=== PATIENT | male | born 1975 ===

== ENCOUNTER → 2018-04-24 22:13 | Outpatient (REF) | payer OTHER, SELFPAY ==
[2018-04-24 22:16] LABS: Bacteria Urine None Seen; RBC Urine None Seen (0-5/HPF); WBC Urine None Seen (0-5/HPF)
[2018-04-24 23:01] LABS: Add Manual Diff / Slide Review NO; Basophils Absolute Auto 0 /uL (0-100); Basophils Percent Auto 0.6 % (0-2); Eosinophils Absolute Auto 0 /uL (0-450); Eosinophils Percent Auto 0.9 % (2-4); Hemoglobin 15.1 g/dL (13.5-17.5); Lymphocytes Absolute Auto 1800 /uL (1100-4500); Lymphocytes Percent Auto 31.3 % (25-40); Mean Corpuscular HGB Conc 32.9 % (30-36); Mean Corpuscular Hemoglobin 30.7 PG (26-34); Mean Corpuscular Volume 93.4 fL (80-100); Monocytes Absolute Auto 400 /uL (0-900); Neutrophils Absolute Auto 3400 /uL (1500-7000); Neutrophils Percent Auto 60.2 % (50-75); Platelet Count 221 X10^3/uL (150-400); Red Blood Cell Count 4.93 X10^6/uL (4.5-5.9); Red Cell Distribution Width 12.4 % (11.6-14.8); White Blood Cell Count 5.6 X10^3/uL (4.5-11.0)
[2018-04-24 23:24] LABS: Appearance Urine UA CLEAR; Bilirubin Urine UA NEGATIVE (NEGATIVE); Color Urine UA YELLOW; Glucose Urine UA NEGATIVE (Negative); Ketones Urine UA NEGATIVE (NEGATIVE); Leukocyte Esterase Urine UA NEGATIVE (NEGATIVE); Nitrite Urine UA NEGATIVE (Negative); Occult Blood Urine UA NEGATIVE (Negative); Protein Urine UA NEGATIVE (Negative); Urobilinogen Urine UA 0.2 E.U./dL (0.2)
[2018-04-24 23:33] LABS: Alanine Aminotransferase 32 IU/L (21-72); Albumin 4.5 g/dL (3.5-5.0); Albumin Globulin Ratio 1.6 (1.0-2.8); Alkaline Phosphatase 53 U/L (38-126); Aspartate Aminotransferase 27 IU/L (17-59); BUN Creatinine Ratio 23.3 (6-22); Bilirubin Total 0.8 mg/dL (0.2-1.3); Blood Urea Nitrogen 21 mg/dL (9-20); Calcium 9.6 mg/dL (8.4-10.2); Carbon Dioxide 29 mmol/L (22-32); Chloride 102 mmol/L (98-107); Cholesterol 152 mg/dL (140-199); Estimated Glomerular Filt Rate > 60.0 mL/min (>60); Globulin 2.8 g/dL (1.7-4.1); Glucose 93 mg/dL (70-100); HDL Cholesterol 52 mg/dL (40-60); HEMOLYSIS < 15 (0-50); LDL Cholesterol Calculated 88 mg/dL (<100); Potassium 4.9 mmol/L (3.4-5.1); Sodium 139 mmol/L (137-145); Total Protein 7.3 g/dL (6.3-8.2); Triglycerides 61 mg/dL (35-150)
[2018-04-24 23:38] LABS: Culture Indicated Urine Cult Not Indicated; Urine Comments Microscopic Normal
[2018-04-25 02:05] LABS: Free T4, Direct Thyroxine 0.98 ng/dL (0.78-2.19)
[2018-04-25 02:20] LABS: Thyroid Stimulating Hormone 1.38 uIU/mL (0.47-4.68)
[2018-04-27 14:10] LABS: PSA Total 0.61 ng/mL (< 4.01)
== END ==
LOC: LAB 22:13
PROVIDERS: Visit Provider Naturopath
DX: Z00.00 Encounter for general adult medical examination without abnormal findings (principal); Z13.89 Encounter for screening for other disorder
CPT/HCPCS: 36415; 80053; 80061; 81001; 82728; 84153; 84154; 84439; 84443; 85025